=== PATIENT | female | born 2000 | race African-American/Black ===

== ENCOUNTER 2020-01-07 20:05 | Emergency (ER) | payer OTHER ==
[~2020-01-07] VITALS: Ht 182 cm; Wt 84.0 kg
--- NOTE | 2020-01-07 20:18 | ED Integumentary General ---
General Stated Complaint: ITCHY BLISTERS ON PUBIC AREA Source: patient Exam Limitations: no limitations History of Present Illness Date Seen by Provider: Jan 07, 2020 Time Seen by Provider: 20:17 Initial Comments 19-year-old female presents with concern of itchy bumps in her pubic area. Denies previous occurrence, she is sexually active. Denies history of STDs. Denies vaginal Discharge or pelvic pain. Allergies and Home Medications Allergies Coded Allergies: No Known Drug Allergies (Unverified , 01/07/20) Patient Home Medication List Home Medication List Reviewed: Yes Review of Systems Review of Systems Constitutional: no symptoms reported; No fever, No malaise Gastrointestinal: No abdominal pain, No nausea, No vomiting Genitourinary: see HPI; No discharge, No dysuria, No frequency, No hematuria, No hesitancy, No incontinence, No nocturia, No pain; other (itchy bumps) Skin: see HPI; No change in color, No lesions, No lumps; pruritus; No rash Past Nkmwxpa-Tbtrfk-Ihsvgg Hx Past Med/Social Hx: Reviewed Nursing Past Med/Soc Hx Patient Social History Recent Foreign Travel: No Contact w/Someone Who Travel: No Physical Exam Vital Signs Capillary Refill : General Appearance: WD/WN, no apparent distress Gastrointestinal: non tender, soft Skin: normal color, warm/dry, other (external visualization of (vulva/ genitalia) with no evidence of STD or other skin abnl. that would be suspicious for infectious etiology) Progress/Results/Core Measures Progress Progress Note : Progress Note After visualization unfold the and genitalia with no evidence of STD or other infectious disease concern. Reassurance is given and symptomatic care is advised with follow-up if not improving in one to 2 weeks with her PCP. Departure Impression Primary Impression: Vaginitis Qualified Codes: N76.0 - Acute vaginitis Disposition: HOME, SELF-CARE Condition: Stable Departure-Patient Inst. Decision time for Depature: 20:17 Referrals: NO,LOCAL PHYSICIAN (PCP/Family) Primary Care Physician Patient Instructions: Vaginitis Add. Discharge Instructions: Follow up with your PCP ini 1 -2 weeks if not improving, sooner if worse or your symptoms change. At this time their is no evidence for an STD SHMUEL BECERRA DO Jan 07, 2020 20:18
== END 2020-01-07 20:20 | disposition home or self-care (01) ==
LOC: ER FS 20:07
DX: N76.0 Acute vaginitis (principal)
CPT/HCPCS: 99282

== ENCOUNTER 2020-06-28 14:26 | Emergency (ER) | payer OTHER ==
[2020-06-28] MEDS ORDERED: CLINDAMYCIN 600 MG/50 ML IVPB 50 ML IV STA (14:45)
--- NOTE | 2020-06-28 15:06 | ED EENT ---
History of Present Illness General Chief Complaint: Oral/Throat Problems Stated Complaint: SORE THROAT; THROAT PAIN Nursing Triage Note: R sided neck pain with swallowing that started thsi morning. States has hx of suppurative thyroiditis. Source: patient History of Present Illness Date Seen by Provider: Jun 28, 2020 Time Seen by Provider: 14:27 Initial Comments 19 yo female presents with right sided neck and throat pain that started this am. She has had similar pains in the past that were due to acute suppurative thyroiditis. She was concerned this was the same thing. She has had strep throat in the past as well but none since having tonsils and adenoids removed. She denies fever or chills. She has not had any ill contacts recently that she is aware of being around. She has not been feeling bad until this am when she woke up. She has no cough, shortness of breath, nausea, vomiting, diarrhea, congestion. Allergies and Home Medications Allergies Coded Allergies: No Known Drug Allergies (Unverified , 01/07/20) Home Medications Clindamycin HCl 300 Mg Capsule, 300 MG PO TID Prescribed by: KEVIN MARTINEZ on 06/28/20 0524 Patient Home Medication List Home Medication List Reviewed: Yes Review of Systems Review of Systems Constitutional: No chills, No fever Eyes: No Symptoms Reported Ears: No Symptoms Reported Nose: no symptoms reported Throat: see HPI Respiratory: no symptoms reported Cardiovascular: no symptoms reported Gastrointestinal: no symptoms reported Musculoskeletal: no symptoms reported Skin: no symptoms reported Neurological: No Symptoms Reported Hematologic/Lymphatic: No Symptoms Reported Past Geaitus-Ucilhv-Tpvdmc Hx Past Med/Social Hx: Reviewed Nursing Past Med/Soc Hx Patient Social History Alcohol Use: Denies Use Smoking Status: Never a Smoker 2nd Hand Smoke Exposure: No Recent Infectious Disease Expo: No Recent Hopitalizations: No Past Medical History Surgeries: Yes Adenoidectomy, Orthopedic, Tonsillectomy Respiratory: No Cardiac: No Neurological: No Genitourinary: No Gastrointestinal: No Musculoskeletal: No Endocrine: No HEENT: No Cancer: No Psychosocial: No Integumentary: No Blood Disorders: No Physical Exam Vital Signs Vital Signs - First Documented 06/28/20 06/28/20 14:38 16:04 Temp 36.3 Pulse 62 Resp 16 B/P (MAP) 140/69 Pulse Ox 100 Height, Weight, BMI Height: '" Weight: lbs. oz. kg; 25.00 BMI Method: General Appearance: WD/WN, no apparent distress Nose: normal inspection Mouth/Throat: normal mouth inspection, pharynx normal; No pharynx swelling, No trismus, No voice changes Neck: full range of motion, supple, thyromegaly (mild with tenderness to palpation on right side, worse with swallowing) Cardiovascular: normal peripheral pulses, regular rate, rhythm Respiratory: chest non-tender, lungs clear, normal breath sounds Neurologic/Psychiatric: alert, normal mood/affect, oriented x 3 Skin: normal color, warm/dry; No rash Progress/Results/Core Measures Results/Orders Lab Results Laboratory Tests Test 06/28/20 14:50 06/28/20 14:55 Range/Units White Blood Count 6.4 4.3-11.0 10^3/uL Red Blood Count 4.12 L 4.35-5.85 10^6/uL Hemoglobin 11.6 11.5-16.0 G/DL Hematocrit 37 35-52 % Mean Corpuscular Volume 90 80-99 FL Mean Corpuscular Hemoglobin 28 25-34 PG Mean Corpuscular Hemoglobin Concent 31 L 32-36 G/DL Red Cell Distribution Width 13.7 10.0-14.5 % Platelet Count 306 130-400 10^3/uL Mean Platelet Volume 10.0 7.4-10.4 FL Immature Granulocyte % (Auto) 1 % Neutrophils (%) (Auto) 59 42-75 % Lymphocytes (%) (Auto) 27 12-44 % Monocytes (%) (Auto) 11 0-12 % Eosinophils (%) (Auto) 2 0-10 % Basophils (%) (Auto) 1 0-10 % Neutrophils # (Auto) 3.8 1.8-7.8 X 10^3 Lymphocytes # (Auto) 1.8 1.0-4.0 X 10^3 Monocytes # (Auto) 0.7 0.0-1.0 X 10^3 Eosinophils # (Auto) 0.1 0.0-0.3 10^3/uL Basophils # (Auto) 0.0 0.0-0.1 10^3/uL Immature Granulocyte # (Auto) 0.0 0.0-0.1 10^3/uL Sodium Level 139 135-145 MMOL/L Potassium Level 3.8 3.6-5.0 MMOL/L Chloride Level 104 98-107 MMOL/L Carbon Dioxide Level 25 21-32 MMOL/L Anion Gap 10 5-14 MMOL/L Blood Urea Nitrogen 9 7-18 MG/DL Creatinine 0.78 0.60-1.30 MG/DL Estimat Glomerular Filtration Rate > 60 BUN/Creatinine Ratio 12 Glucose Level 74 70-105 MG/DL Lactic Acid Level 0.71 0.50-2.00 MMOL/L Calcium Level 9.6 8.5-10.1 MG/DL Corrected Calcium 8.5-10.1 MG/DL Total Bilirubin 0.6 0.1-1.0 MG/DL Aspartate Amino Transf (AST/SGOT) 19 5-34 U/L Alanine Aminotransferase (ALT/SGPT) 9 0-55 U/L Alkaline Phosphatase 54 40-136 U/L C-Reactive Protein 0.03 <0.50 MG/DL Total Protein 7.9 6.4-8.2 GM/DL Albumin 4.7 H 3.2-4.5 GM/DL Group A Streptococcus Screen NEGATIVE NEGATIVE My Orders Orders - KEVIN MARTINEZ MD Us Soft Tissue Head&Neck [id number] (06/28/20 14:42) Cbc With Automated Diff (06/28/20 14:44) Comprehensive Metabolic Panel (06/28/20 14:44) Blood Culture (06/28/20 14:44) Rapid Strep A Screen (06/28/20 14:44) Ed Iv/Invasive Line Start (06/28/20 14:44) Crp Fs (06/28/20 14:44) Lactic Acid Analyzer (06/28/20 14:44) Clindamycin 600 Mg/50 Ml Ivpb (Cleocin P (06/28/20 14:45) Ketorolac Injection (Toradol Injection) (06/28/20 15:52) Vital Signs/I&O 06/28/20 06/28/20 14:38 16:04 Temp 36.3 Pulse 62 55 Resp 16 16 B/P (MAP) 140/69 Pulse Ox 100 Progress Progress Note #1: Progress Note Check labs with lactic acid and blood cultures. Ultrasound of neck and thyroid to evaluate for possible abscess and thyroid inflammation.From review of Uptodate medical reference will start pt on antibiotics parenterally on Clindamycin for empiric coverage. Provided labs are stable and no abscess on ultrasound will discharge on oral antibiotics and encourage follow up with clinic for thyroid testing and further evaluation. Progress Note #2: Progress Note Labs are stable without acute significant abnormality on CBC, Normal lactic acid and no elevation of CRP. No abscess seen on ultrasound on preliminary review of imaging. Discharge on clindamycin oral pills and refer to [facility] since pt in the dorms here in the building [facility]. Diagnostic Imaging Diagonstic Imaging: Ultrasound Plain Films/CT/US/NM/MRI: other (thyroid and neck) Comments [facility], [place] NAME: FREDERICK OSORIO I [facility] REC#: [id number] PT STATUS: REG ER : 2000 PHYSICIAN: KEVIN MARTINEZ MD ADMIT DATE: 06/28/20/ER FS Draft Date of Exam:06/28/20 US SOFT TISSUE HEAD&NECK [id number] HISTORY: Throat pain, history of thyroid abscess and suppurative thyroiditis. COMPARISON: None. TECHNIQUE: Ultrasound of the thyroid. FINDINGS: The right thyroid measures 4.5 x 1.3 x 1.3 cm. Background echotexture and vascularity appear normal. There is a small simple appearing cyst measuring 3 mm in the posterior mid thyroid. The left thyroid measures 4.6 x 1.5 x 1.5 cm. There are multiple small cystic or spongiform nodules which may represent small colloid cysts. These do not warrant followup based on TI-RADS criteria. The background echotexture and vascularity appear normal. The isthmus measures 2 mm and appears normal. Surrounding soft tissues are unremarkable. IMPRESSION: Subcentimeter thyroid cysts. No followup is indicated by TI-RADS criteria. Dictated on workstation # [id number] Dict: 06/28/20 1553 Trans: 06/28/20 1556 [id number] Interpreted by: JED ESTRADA MD Electronically signed by: Departure Impression Primary Impression: Neck pain on right side Additional Impression: Acute suppurative thyroiditis Disposition: 01 HOME, SELF-CARE Condition: Stable Departure-Patient Inst. Decision time for Depature: 15:53 Referrals: NO,LOCAL PHYSICIAN (PCP) Primary Care Physician [facility] [place] Patient Instructions: Neck Pain, Thyroiditis Add. Discharge Instructions: Take the antibiotics to treat for possible thyroiditis. Establish care and follow up with clinic to see about Thyroid testing and if fur ther care is needed. [facility] can be reached by calling [phone] to make an appointment All discharge instructions reviewed with patient and/or family. Voiced understanding. Scripts Clindamycin HCl (Clindamycin HCl) 300 Mg Capsule 300 MG PO TID for 7 Days, #21 CAP 0 Refills Prov: KEVIN MARTINEZ MD 06/28/20 KEVIN MARTINEZ MD Jun 28, 2020 15:06
[2020-06-28 15:16] LABS: HEMATOCRIT 37 % (35-52); HEMOGLOBIN 11.6 G/DL (11.5-16.0); MEAN CORPUSCULAR HEMOGLOBIN 28 PG (25-34); MEAN CORPUSCULAR HGB CONC 31 G/DL (32-36); MEAN CORPUSCULAR VOLUME 90 FL (80-99); PLATELET COUNT 306 10^3/uL (130-400); WHITE BLOOD COUNT 6.4 10^3/uL (4.3-11.0)
[2020-06-28 15:17] LABS: BASOPHILS % (AUTO) 1 % (0-10); EOSINOPHILS # (AUTO) 0.1 10^3/uL (0.0-0.3); EOSINOPHILS % (AUTO) 2 % (0-10); LYMPHOCYTES # (AUTO) 1.8 X 10^3 (1.0-4.0); LYMPHOCYTES % (AUTO) 27 % (12-44); MONOCYTES # (AUTO) 0.7 X 10^3 (0.0-1.0); MONOCYTES % (AUTO) 11 % (0-12); NEUTROPHILS # (AUTO) 3.8 X 10^3 (1.8-7.8); NEUTROPHILS % (AUTO) 59 % (42-75)
[2020-06-28 15:23] LABS: ALANINE AMINOTRANSFERASE 9 U/L (0-55); ALBUMIN 4.7 GM/DL (3.2-4.5); ALKALINE PHOSPHATASE 54 U/L (40-136); BILIRUBIN,TOTAL 0.6 MG/DL (0.1-1.0); BUN/CREATININE RATIO 12; CALCIUM 9.6 MG/DL (8.5-10.1); CARBON DIOXIDE 25 MMOL/L (21-32); CHLORIDE 104 MMOL/L (98-107); CREATININE SERUM 0.78 MG/DL (0.60-1.30); GFR ESTIMATED > 60; GLUCOSE 74 MG/DL (70-105); POTASSIUM 3.8 MMOL/L (3.6-5.0); SODIUM 139 MMOL/L (135-145); TOTAL PROTEIN 7.9 GM/DL (6.4-8.2)
[2020-06-28] MEDS ORDERED: KETOROLAC 30 MG/ML VIAL IVP STA (15:52)
[2020-06-28] MEDS ORDERED: CLIN300C12 PO (15:56)
--- NOTE | 2020-06-28 15:56 | Diagnostic Imaging Report ---
HISTORY: Throat pain, history of thyroid abscess and suppurative thyroiditis. COMPARISON: None. TECHNIQUE: Ultrasound of the thyroid. FINDINGS: The right thyroid measures 4.5 x 1.3 x 1.3 cm. Background echotexture and vascularity appear normal. There is a small simple appearing cyst measuring 3 mm in the posterior mid thyroid. The left thyroid measures 4.6 x 1.5 x 1.5 cm. There are multiple small cystic or spongiform nodules which may represent small colloid cysts. These do not warrant followup based on TI-RADS criteria. The background echotexture and vascularity appear normal. The isthmus measures 2 mm and appears normal. Surrounding soft tissues are unremarkable. IMPRESSION: Subcentimeter thyroid cysts. No followup is indicated by TI-RADS criteria. Dictated by: Dictated on workstation # [id number]
== END 2020-06-28 16:09 | disposition home or self-care (01) ==
LOC: EDUNIT# 14:26 → ER FS 14:28
DX: M54.2 Cervicalgia (principal); E06.0 Acute thyroiditis
CPT/HCPCS: 36415; 76536; 80053; 83605; 85025; 86141; 87040; 87430